=== PATIENT | male | born 1995 | race American Indian/Alaskan Native ===

== ENCOUNTER 2018-01-31 17:43 | Emergency (ER) | payer SELFPAY ==
[2018-01-31 17:49] VITALS: BP 115/62; PULSE 89; RESP 16; TEMP 98.6; O2SAT 98
--- NOTE | 2018-01-31 18:25 | RAD ---
PROCEDURE: Right Ankle Radiographs. HISTORY: injury COMPARISON: None FINDINGS: BONES: No acute fracture or destructive bony lesion identified. JOINTS: Normal. No osteoarthritis. Ankle mortise maintained. Talar dome intact SOFT TISSUES: Limited posterior ankle soft tissue edema noted. OTHER FINDINGS: None. IMPRESSION: Limited posterior right ankle soft tissue edema. No acute fracture, subluxation or dislocation. Ankle mortise intact.
--- NOTE | 2018-01-31 18:39 | C.PDOC ---
History Of Present Illness A 22 y/o male presents to ED for evaluation right posterior foot pain. He says that during a game, someone kicked him and now it is swollen and hard to walk. Patient is from [place] and on vacation here. Time Seen by Provider: 01/31/18 17:51 Chief Complaint (Nursing): Lower Extremity Problem/Injury History Per: Patient History/Exam Limitations: no limitations Onset/Duration Of Symptoms: Hrs Current Symptoms Are (Timing): Still Present - Ankle/Foot Description Of Injury: Other (Kicked right posterior ankle) Currently Unable To: Bend Or Move Past Medical History Vital Signs: Last Vital Signs Temp 98.6 F 01/31/18 17:47 Pulse 89 01/31/18 17:47 Resp 16 01/31/18 17:47 BP 115/62 01/31/18 17:47 Pulse Ox 98 01/31/18 20:06 Family History: States: No Known Family Hx - Social History Hx Alcohol Use: No Hx Substance Use: No Review Of Systems Except As Marked, All Systems Reviewed And Found Negative. Musculoskeletal: Positive for: Foot Pain (right foot pain, and swollen.) Physical Exam - Physical Exam Appears: Non-toxic, No Acute Distress Skin: Normal Color, Warm, Dry Head: Atraumatic, Normacephalic Eye(s): bilateral: Normal Inspection Lips: Normal Appearing Neck: Normal, Normal ROM, Supple Extremity: Tenderness (right posterior ankle), Swelling (right posterior ankle ) , Other (+Thomposon test, area of achilles tendon is soft) Extremity: Left: Atraumatic, Normal Color And Temperature, Normal ROM Pulses: Left Dorsalis Pedis: Normal, Right Dorsalis Pedis: Normal Neurological/Psych: Oriented x3, Normal Speech ED Course And Treatment O2 Sat by Pulse Oximetry: 98 (RA) Pulse Ox Interpretation: Normal - Other Rad right foot X-Ray: Read By Radiologist Interpretation: Accession No. : [id number]. Patient Name / ID : LEO CHOWDHURY / [id number]. Exam Date : 01/31/2018 18:12:48 ( Approved ). Study Comment : Sex / Age : M / 22Y. Creator : Chandu Davies MD. Dictator : Chandu Davies MD. Liner Worker : Manager Material : Chandu Davies MD. Approver2 : Report Date : 01/31/2018 18:24:15. My Comment : . PROCEDURE: Right Ankle Radiographs. HISTORY: injury. COMPARISON: None. FINDINGS: BONES: No acute fracture or destructive bony lesion identified. JOINTS: Normal. No osteoarthritis. Ankle mortise maintained. Talar dome intact. SOFT TISSUES: Limited posterior ankle soft tissue edema noted. OTHER FINDINGS: None. IMPRESSION: Limited posterior right ankle soft tissue edema. No acute fracture, subluxation or dislocation. Ankle mortise intact Medical Decision Making Medical Decision Making: X ray was done and read. Right posterior ankle was splinted using a short leg posterior splint. Foot in position of Plantar flex. Patient was also given crutches. He says he will f/u with his physician back in [place]. Disposition - Disposition Referrals: Roseline Guardado MD [Staff Provider] - Disposition: HOME/ ROUTINE Disposition Time: 18:36 Condition: STABLE Additional Instructions: Follow up with Orthopedist within 2-3 days. Return to ED if feel worse. 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 - Scribe Statement The provider has reviewed the documentation as recorded by the Scribe ([place] Cruz) All medical record entries made by the Scribe were at my direction and personally dictated by me. I have reviewed the chart and agree that the record accurately reflects my personal performance of the history, physical exam, medical decision making, and the department course for this patient. I have also personally directed, reviewed, and agree with the discharge instructions and disposition.
== END 2018-01-31 18:40 | disposition home or self-care (01) ==
LOC: C.ER 17:43
DX: S86.011A Strain of right Achilles tendon, initial encounter (principal); W50.1XXA Accidental kick by another person, initial encounter